=== PATIENT | male | born 1930 | race Two or more races ===

== ENCOUNTER 2017-05-03 11:19 | Emergency (ER) | payer MEDICARE ==
[~2017-05-03] VITALS: Ht 193 cm; Wt 90.7 kg
[~2017-05-03 11:19] MED LIST: CATH8MIS BLADIN; CLON0.1T PO; ESOM1CAP4 PO; MULTTAB99 PO; NEBI5TAB2 PO; TAM04C PO; TERA2CAP45 PO
[2017-05-03 12:01] LABS: Urine RBC None Seen /hpf (0 - 3)
[2017-05-03 12:12] LABS: Urine Bilirubin Negative (Negative); Urine Blood Negative /uL (Negative); Urine Color Yellow (Yellow); Urine Glucose Normal (Normal); Urine Ketone Negative (Negative); Urine Nitrite Negative (Negative); Urine Squamous Epithelial Cell FEW /hpf (<5); Urine Urobilinogen Normal (Negative); Urine pH 5.5 (5.0-8.0)
[2017-05-03 13:25] VITALS: BP 151/96
== END 2017-05-03 13:33 | disposition home or self-care (01) ==
LOC: ER 11:19
DX: N40.1 Benign prostatic hyperplasia with lower urinary tract symptoms (principal); N13.8 Other obstructive and reflux uropathy; I10 Essential (primary) hypertension; Z79.899 Other long term (current) drug therapy
CPT/HCPCS: 51702; 81001

== ENCOUNTER → 2017-05-21 | Outpatient (CLI) | payer MEDICARE | END | disposition home or self-care (01) | LOC: Rad HDHVI 13:41 | PROVIDERS: ATTEND Internal Medicine Cardiovascular Disease | DX: I49.5 Sick sinus syndrome (principal); I20.0 Unstable angina | CPT/HCPCS: 93306 ==

== ENCOUNTER → 2017-07-23 | Outpatient (CLI) | payer MEDICARE ==
[~2017-07-23] MED LIST changes: +MULT1CAP30 PO; -MULTTAB99 PO; -TAM04C PO; +TAMS0.4C36 PO; -TERA2CAP45 PO
[2017-07-23 08:55] VITALS: BP 150/86
[2017-07-23 09:30] VITALS: BP 137/83
[2017-07-23 12:55] LABS: Basophils # (auto) 0.1 uL; Basophils % (auto) 0.5 % (0.0-2.0); Eosinophils # (auto) 0.2 uL; Eosinophils % (auto) 1.6 % (0.0-7.0); Hematocrit 41.4 % (41.0-53.0); Hemoglobin 13.7 g/dL (13.5-17.5); Lymphocytes # (auto) 1.1 uL; Lymphocytes % (auto) 11.7 % (10.0-50.0); Mean Corpuscular Hemoglobin 29.4 pg (28.0-32.0); Mean Corpuscular Hgb Conc. 33.1 g/dL (32.0-36.0); Mean Corpuscular Volume 88.7 fL (80.0-100.0); Mean Platelet Volume 9.2 fL (6.9-10.8); Monocytes # (auto) 0.6 uL; Monocytes % (auto) 6.4 % (0.0-12.0); Neutrophils # (auto) 7.4 uL; Neutrophils % (auto) 79.8 % (37.0-80.0); Nucleated Red Blood Cells % 0.2 %; Platelet Count (auto) 253 10^3/uL (140-450); Red Cell Distribution Width 14.8 % (11.8-14.3); White Blood Cell 9.2 10^3/uL (4.4-10.8)
[2017-07-23 13:07] LABS: Urine Bilirubin Negative (Negative); Urine Blood TRACE /uL (Negative); Urine Color Yellow (Yellow); Urine Glucose Normal (Normal); Urine Ketone Negative (Negative); Urine Mucus FEW (None Seen); Urine Nitrite Negative (Negative); Urine RBC 10 /hpf (0 - 3); Urine Squamous Epithelial Cell FEW /hpf (<5); Urine Urobilinogen Normal (Negative); Urine pH 5.5 (5.0-8.0)
[2017-07-23 13:08] LABS: INR 0.98 (0.9-1.15); Partial Thromboplastin Time 29.2 sec (22.64-33.71); Prothrombin Time 10.7 sec (9.37-12.3)
[2017-07-23 13:17] LABS: BUN/Creatinine Ratio 12.2; Calcium 8.5 mg/dL (8.5-10.1); Potassium 3.7 mmol/L (3.5-5.1)
== END | disposition home or self-care (01) ==
LOC: Rad HDHVI 08:38
PROVIDERS: ATTEND Internal Medicine Cardiovascular Disease
DX: Z01.818 Encounter for other preprocedural examination (principal); I10 Essential (primary) hypertension; I70.0 Atherosclerosis of aorta; D64.9 Anemia, unspecified; N39.0 Urinary tract infection, site not specified; R33.9 Retention of urine, unspecified; R79.1 Abnormal coagulation profile
CPT/HCPCS: 36415; 71020; 80048; 81001; 85025; 85610; 85730; 87086; 87088; 87186; 93005; G0463

== ENCOUNTER → 2017-11-15 | Outpatient (CLI) | payer MEDICARE | END | disposition home or self-care (01) | LOC: Rad HDHVI 14:20 | PROVIDERS: ATTEND Internal Medicine Cardiovascular Disease | DX: R07.89 Other chest pain (principal) | CPT/HCPCS: 93306 ==

== ENCOUNTER → 2017-11-24 | Outpatient (CLI) | payer MEDICARE ==
[~2017-11-24] VITALS: Ht 193 cm; Wt 90.3 kg
== END | disposition home or self-care (01) ==
LOC: Rad HDHVI 13:38
PROVIDERS: ATTEND Internal Medicine Cardiovascular Disease
DX: R07.89 Other chest pain (principal); I49.5 Sick sinus syndrome; I10 Essential (primary) hypertension; Z95.0 Presence of cardiac pacemaker
CPT/HCPCS: 78452; 93017; 96374; A9500

== ENCOUNTER → 2020-06-04 | Outpatient (CLI) | payer MEDICARE | END | disposition home or self-care (01) | LOC: Rad HDHVI 13:45 | PROVIDERS: ATTEND Internal Medicine Cardiovascular Disease | DX: I08.0 Rheumatic disorders of both mitral and aortic valves (principal); I10 Essential (primary) hypertension; R00.2 Palpitations | CPT/HCPCS: 93306 ==